=== PATIENT | female | born 1965 | race Hispanic/Latino ===

== ENCOUNTER 2024-11-23 19:51 | Emergency (ER) | payer OTHER, BC ==
[~2024-11-23] VITALS: Ht 162.6 cm; Wt 74.8 kg
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
--- NOTE | 2024-11-23 20:10 | NUR ---
PATIENT TO CT CT ACCOMPANIED BY ED RN
--- NOTE | 2024-11-23 20:24 | NUR ---
patient back from ct
[2024-11-23 20:33] LABS: IMMATURE GRANULOCYTE ABSOLUTE 0.01 K/uL (0-1); NUCLEATED RED BLOOD CELLS 0.0 % (0.0-0.19); PLATELET COUNT (AUTO) 283 K/uL (130-400); RED BLOOD CELL COUNT(AUTO) 4.43 MIL/uL (4.00-5.50); RED CELL DISTRIBUTION WIDTH 12.9 % (11.0-15.5); WHITE BLOOD COUNT (AUTO) 7.5 K/uL (4.8-10.8)
[2024-11-23 20:39] LABS: CREATININE 0.6 mg/dL (0.5-1.0); GLOMERULAR FILTR. RATE CALC 105 mL/min (>90); GLUCOSE,RANDOM 89 mg/dL (70-105); SODIUM SERUM 140 mmol/L (136-145); UREA NITROGEN, BLOOD 11 mg/dL (7-18)
[2024-11-23 20:42] LABS: ALCOHOL, BLOOD < 3 mg/dL (0-10)
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
[2024-11-23 22:18] LABS: ADD UA MICROSCOPIC NO; APPEARANCE,URINE CLEAR (CLEAR); GLUCOSE, URINE (UA) NEGATIVE (NEGATIVE); LEUKOCYTE ESTERASE ,URINE NEGATIVE Leu/uL (NEGATIVE); NITRATE,URINE NEGATIVE (NEGATIVE); OCCULT BLOOD,URINE NEGATIVE (NEGATIVE)
--- NOTE | 2024-11-24 00:34 | HMCIMG ---
EXAM: Non-contrast CT examination of the pelvis. CLINICAL HISTORY: Possible subcapital fracture. TECHNIQUE: Thin collimated axial CT images of the pelvis were obtained, with sagittal and coronal reformatted images also submitted. A CT scan was done according to ALARA (As low as reasonably achievable). CONTRAST USED: None. COMPARISON: CR pelvis 11/23/2024. FINDINGS: No acute fracture or aggressively appearing osseous lesion. Decreased bone mineralization. Mild osteoarthritis in the bilateral hip, sacroiliac, and symphysis pubis joints. The soft tissues are unremarkable. IMPRESSION: No acute fracture or dislocation. The recently noted right femoral neck shortening could be secondary to positioning or technical limitations; there is no acute subcapital fracture on CT scan. /[place]
[2024-11-24 01:41] VITALS: BP 132/72; PULSE 60; RESP 18; TEMP 98.4; O2SAT 99
--- NOTE | 2024-11-24 01:43 | NUR ---
REFER TO TRAUMA FLOWSHEET
== END 2024-11-24 01:41 | disposition home or self-care (01) ==
LOC: EDH 19:51
DX: S90.02XA Contusion of left ankle, initial encounter (principal); S70.02XA Contusion of left hip, initial encounter; S09.90XA Unspecified injury of head, initial encounter; I10 Essential (primary) hypertension; Z88.6 Allergy status to analgesic agent; V89.2XXA Person injured in unspecified motor-vehicle accident, traffic, initial encounter; Y93.89 Activity, other specified; Y92.89 Other specified places as the place of occurrence of the external cause; Y99.8 Other external cause status
CPT/HCPCS: 99285; 70450; 96374; 71045; 80048; 85025; 81003; 36415; 73610; 73562; 72190; 72125; 72192; J1885